=== PATIENT | female | born 1985 | race Asian ===

== ENCOUNTER 2023-08-24 22:14 | Emergency (ER) | payer SELFPAY ==
[~2023-08-24] VITALS: Ht 160 cm; Wt 54.4 kg
[2023-08-24 22:51] VITALS: BP 136/73; RESP 20; O2SAT 97
[2023-08-24 22:59] VITALS: PULSE 74
[2023-08-24 23:13] LABS: Basophils # (auto) 0 10 ^3/uL (0-0.2); Basophils % (auto) 0.4 % (0.0-2.0); Eosinophils # (auto) 0.1 10 ^3/uL (0-0.8); Hematocrit 44.6 % (36.0-46.0); Hemoglobin 14.9 g/dL (12.2-16.2); Lymphocytes # (auto) 2.7 10 ^3/uL (0.4-5.4); Lymphocytes % (auto) 36.4 % (10.0-50.0); Mean Corpuscular Hemoglobin 31.2 pg (28.0-32.0); Mean Corpuscular Hgb Conc. 33.4 g/dL (32.0-36.0); Mean Corpuscular Volume 93.4 fL (80.0-100.0); Monocytes # (auto) 0.4 10 ^3/uL (0-1.3); Monocytes % (auto) 5.6 % (0.0-12.0); Neutrophils # (auto) 4.1 10 ^3/uL (1.6-8.6); Neutrophils % (auto) 56.6 % (37.0-80.0); Nucleated Red Blood Cells % 0.1 %; Red Blood Cells 4.78 10^6/uL (4.0-5.20); Red Cell Distribution Width 13.4 % (11.8-14.3); White Blood Cell 7.3 10^3/uL (4.4-10.8)
[2023-08-24] MEDS: ACTIVATED CHARCOAL 50 GM/240 ML SOL PO ONE (23:18)
[2023-08-24] MEDS: ACTIVATED CHARCOAL 50 GM/240 ML SOL ONE (23:18)
[2023-08-24 23:29] LABS: Acetaminophen < 2.0 UG/ML (10.0-20.0)
[2023-08-24 23:30] LABS: Alanine Aminotransferase 18 U/L (7-40); Albumin 4.8 g/dL (3.2-4.8); Alkaline Phosphatase 58 U/L (46-116); Anion Gap 8 (5-15); Aspartate Aminotransferase 8 U/L (13-40); BUN/Creatinine Ratio 6.4 (10.0-20.0); Bilirubin, Total 0.6 mg/dL (0.2-1.0); Blood Urea Nitrogen 5 mg/dL (9-23); Calcium 9.9 mg/dL (8.7-10.4); Carbon Dioxide 24 mmol/L (20-30); Chloride 114 mmol/L (98-107); Glucose 98 mg/dL (74-106); Magnesium 2.3 mg/dL (1.6-2.6); Potassium 3.9 mmol/L (3.5-5.1); Salicylate < 3.0 mg/dL (2.8-20.0); Sodium 146 mmol/L (136-145); Total Protein 7.7 g/dL (5.7-8.2)
[2023-08-24 23:41] LABS: Blood Alcohol 170.4 mg/dL (<10)
== END 2023-08-24 23:45 | disposition left against medical advice (07) ==
LOC: EDBD 22:14 → ER 22:14
DX: R45.851 Suicidal ideations (principal); F10.129 Alcohol abuse with intoxication, unspecified; R10.2 Pelvic and perineal pain; Y90.6 Blood alcohol level of 120-199 mg/100 ml
CPT/HCPCS: 36415; 80053; 80320; 80329; 83735; 84702; 85025; 93005